=== PATIENT | female | born 1950 | race Caucasian/White ===

== ENCOUNTER 2016-08-23 11:43 | Emergency (ER) | payer BC ==
[2016-08-23 12:06] VITALS: BP 110/67
--- NOTE | 2016-08-23 12:13 | UC ---
Complaint Female HPI - HPI Summary HPI Summary: 65F presents with increase urgency , dysuria,for a day. She denies any fever, flank pain, abdominal pain, n/v/d or hematuria. She has pyridium at home that she has not taken yet. She gest UTI once a year and this feels just like her previous UTI. She is going on a long trip tomorrow PMH of osteopenia. - History Of Current Complaint Chief Complaint: UCGU Stated Complaint: UTI COMPLAINT Time Seen by Provider: 08/23/16 12:11 - Allergies/Home Medications Allergies/Adverse Reactions: Allergies Allergy/AdvReac Type Severity Reaction Status Date / Time Sulfamethoxazole Allergy See Comment Verified 08/23/16 12:02 w/Trimethoprim [From Bactrim] Home Medications: Home Medications Alendronate (NF) [Fosamax (NF)] 1 tab WEEKLY 08/23/16 [History Confirmed ] PMH/Surg Hx/FS Hx/Imm Hx Cardiovascular History Of: Denies: Hypertension Cancer History Of: Denies: Breast Cancer - Surgical History Surgical History: None - Family History Known Family History: Negative: Cardiac Disease - Social History Alcohol Use: Weekly Substance Use Type: None Smoking Status (MU): Never Smoked Tobacco Review of Systems Constitutional: Negative Cardiovascular: Negative Gastrointestinal: Negative Genitourinary: Dysuria, Frequency, Urgency All Other Systems Reviewed And Are Negative: Yes Physical Exam Triage Information Reviewed: Yes Appearance: Well-Appearing Vital Signs: Initial Vital Signs Temp 97.7 F 08/23/16 12:03 Pulse 84 08/23/16 12:03 Resp 18 08/23/16 12:03 BP 110/67 08/23/16 12:03 Pulse Ox 96 08/23/16 12:03 ENT: Positive: Normal ENT inspection, Pharynx normal, TMs normal Respiratory: Positive: Lungs clear, Normal breath sounds Cardiovascular: Positive: RRR Abdomen Description: Positive: Nontender, Soft Bowel Sounds: Positive: Present Complaint Female Dx - Course Course Of Treatment: 65F presents with UTI symptoms for day, has many UTI and symptoms same as previous, normal PE, U/A pos for leuko, will treat with macrodid due to kidney function normal via previous labs, patient agrees with plan - Differential Dx/Diagnosis Differential Diagnosis/HQI/PQRI: Renal Colic, Ureteral Stone, Urinary Tract Infection Provider Diagnoses: urinary tract infection Discharge - Discharge Plan Condition: Good Disposition: HOME Prescriptions: Nitrofurantoin Macrocrystals* [Macrodantin*] 100 mg PO BID #10 cap Patient Education Materials: Nitrofurantoin Macrocrystals (By mouth), Urinary Tract Infection in Women (ED) Referrals: Christopher Zamudio MD [Primary Care Provider] - Additional Instructions: Take Macrobid twice a day for 5 days Return to UC if develop fever, severe abdominal pain, nausea, or vomiting or any new or worsening symptoms
== END 2016-08-23 12:43 | disposition home or self-care (01) ==
LOC: UCEAST 11:43
DX: N39.0 Urinary tract infection, site not specified (principal); Z88.1 Allergy status to other antibiotic agents
CPT/HCPCS: 81002; 87077; 87086; 87186; 99212; G0463

== ENCOUNTER 2019-03-07 07:53 | Day surgery (SDC) | payer BC ==
[~2019-03-07 07:53] MED LIST: Acetaminophen TAB* 325 MG PO PRN; Buffered Lidocaine 1% SYRIN* 1 ML/SYRINGE INTRADERM ONE
[2019-03-07] MEDS ORDERED: Midazolam* 1 MG/ML 5 ML VIAL (5 MG) ONE (08:18)
[2019-03-07] MEDS ORDERED: fentaNYL* 50 MCG/ML 2 ML VIAL (100 MCG VIAL) ONE (08:18)
[2019-03-07 09:47] VITALS: BP 110/62
--- NOTE | 2019-03-07 09:53 | OP ---
DATE OF OPERATION: 03/07/19 [facility] DATE OF : 48 SURGEON: Dr. Sathish Ruby. CONSUMER RELATIONS SPECIALIST: None. ANESTHESIA: Topical with intravenous sedation. PRE-OP DIAGNOSIS: Cataract, right eye. POST-OP DIAGNOSIS: Cataract, right eye. OPERATIVE PROCEDURE: Phacoemulsification and cataract extraction with posterior chamber intraocular lens implant, right eye. COMPLICATIONS: None. BLOOD LOSS: None. DESCRIPTION OF PROCEDURE: The patient was brought to the operating room and received a small amount of intra-venous sedation. A drop of Tetracaine was placed in her right eye. She was prepped and draped in the usual sterile fashion for ophthalmic surgery and attention was directed to the right eye where a speculum was placed. A paracentesis was created at the 11 o'clock position and 0.1 cc of 1 percent preservative-free Lidocaine was injected into the anterior chamber followed by DisCoVisc. The eye was digitally stabilized while a 2.75 mm keratome was used to create a triplanar clear corneal incision at the 9 o'clock position. A continuous curvilinear capsulorrhexis was created with a cystotome and Utrata forceps. BSS on a cannula was used to hydrodissect the lens from the capsule. Phacoemulsification was performed in a divide-and- conquer technique to create four fragments which were removed. Residual cortical material was removed with irrigation and aspiration. DisCoVisc was used to inflate the capsular bag and an AU00T0 18.5 diopter lens was folded and inserted into the capsular bag. DisCoVisc was removed using irrigation and aspiration. BSS on a cannula was used to hydrate the corneal stroma and seal the wound. At the end of the case the pupil was round and the lens was centered. The eye was of normal pressure and the wound was water tight. The speculum was removed and topical Maxitrol ointment was placed on the surface of the eye. The eye was closed, patched and shielded and the patient was sent to the recovery room in stable condition with post operative instructions and follow-up appointment given. [id number]/CPS #: [id number]
[2019-03-07] MEDS ORDERED: Cyclopentolate 1% OPTH.SOL* 2 ML BTL ONE (14:47)
[2019-03-07] MEDS ORDERED: Phenylephrine OPHTH SOL 2.5%* 2 ML ONE (14:47)
[2019-03-07] MEDS ORDERED: Lidocaine 1% MPF ** 5 ML VIAL ONE (14:47)
[2019-03-07] MEDS ORDERED: Neomycin/Polymy/Dex OPHTH.OIN* 3.5 GM ONE (14:47)
[2019-03-07] MEDS ORDERED: Tropicamide 1% OPTH.SOL* BTL ONE (14:47)
[2019-03-07] MEDS ORDERED: Ketorolac 0.5% OPHTH (NF) 0.5 % 5 ML BTL ONE (14:47)
[2019-03-07] MEDS ORDERED: Tetracaine 0.5% OPTH.SOL 4 ML* 1 DROP BTL ONE (14:47)
== END 2019-03-07 09:39 | disposition home or self-care (01) ==
LOC: OREAST 07:53
PROVIDERS: ATTEND Ophthalmology
DX: Z01.818 Encounter for other preprocedural examination (principal); H25.13 Age-related nuclear cataract, bilateral; R30.0 Dysuria; N39.0 Urinary tract infection, site not specified; Z12.11 Encounter for screening for malignant neoplasm of colon
CPT/HCPCS: A9270-GY; J2250; J3010; V2632

== ENCOUNTER 2022-12-31 05:45 | Observation (INO) ==
[~2022-12-31 05:45] MED LIST changes: -Acetaminophen TAB* 325 MG PO PRN; -Buffered Lidocaine 1% SYRIN* 1 ML/SYRINGE INTRADERM ONE; +Tranexamic Acid 1,000 MG/10 ML 1,000 MG in NS 0.9% 50 ML 50 ML IV SCH
[2022-12-31] MEDS ORDERED: Buffered Lidocaine 1% SYRIN 1 ml INTRADERM ONE (06:00)
[2022-12-31] MEDS ORDERED: Lactated Ringers 1000 ml BAG 1,000 ML IV SCH ×2 (06:00→08:00)
[2022-12-31] MEDS ORDERED: ceFAZolin 2 GM in NS PREMIX 2 GM/100 ML BAG IVPB ONE (06:06)
[2022-12-31 06:31] LABS: Rapid COVID-19 Molecular Undetected (Undetected)
[2022-12-31] MEDS ORDERED: Sevoflurane BOTTLE ONE (06:40)
[2022-12-31] MEDS ORDERED: Phenylephrine IV 10 MG/ML 1 ml VIAL ONE (06:41)
[2022-12-31] MEDS ORDERED: Propofol 10 MG/ML 20 ML BTL ONE (06:42)
[2022-12-31] MEDS ORDERED: ROPIVACAINE 5 MG/ML 30 ML BTL (0.5%) ONE ×2 (06:53→07:02)
[2022-12-31] MEDS ORDERED: fentaNYL 100 mcg/2 ml 50 MCG/ML VIAL ONE (07:01)
[2022-12-31] MEDS ORDERED: Midazolam 2 mg/2 ml VIAL 1 mg/ml 2 ml VIAL (2 mg) ONE ×2 (07:02→07:36)
[2022-12-31] MEDS ORDERED: Morphine 2 MG/ML SYRINGE IV PRN (07:48)
[2022-12-31] MEDS ORDERED: Lactulose 30 ml UDC PO PRN (07:48)
[2022-12-31] MEDS ORDERED: Ondansetron 4 mg VIAL 2 MG/ML 2 ml VIAL IV PRN (07:48)
[2022-12-31] MEDS ORDERED: Magnesium Hydroxide LIQ 30 ML UDC PO PRN (07:48)
[2022-12-31] MEDS ORDERED: Ondansetron ODT 4 mg TAB 4 MG TAB PO PRN (07:48)
[2022-12-31] MEDS ORDERED: Naloxone 0.4 mg VIAL 0.4 mg/ml 1 ml VIAL IV PRN (08:26)
[2022-12-31] MEDS ORDERED: HYDROmorphone 1 MG/1 ML SYRINGE IV PRN (08:26)
[2022-12-31] MEDS: Magnesium Hydroxide LIQ 30 ML UDC PO SCH ×2 (15:01→21:02)
[2022-12-31] MEDS: Vitamin THERAPEUTIC TAB PO SCH (15:01)
[2022-12-31] MEDS: ceFAZolin 1 GM ADVAN 1 GM in NS 0.9% 50 ML 50 ML IVPB SCH ×2 (15:31→23:27)
[2023-01-01 06:56] LABS: Hemoglobin 10.8 g/dL (11.5-14.3); Mean Platelet Volume 7.8 fL (7.5-11.2); Platelet Count 207 10^3/uL (150-450)
[2023-01-01 07:17] LABS: Calcium 8.3 mg/dL (8.6-10.3); Creatinine, Serum 0.66 mg/dL (0.51-0.95); Potassium 3.8 mmol/L (3.5-5.0); eGFR CKD-EPI 92.6 (>60)
[2023-01-01] MEDS: Vitamin THERAPEUTIC TAB PO SCH (07:42)
[2023-01-01] MEDS: Magnesium Hydroxide LIQ 30 ML UDC PO SCH (07:49)
[2023-01-01] MEDS: ceFAZolin 1 GM ADVAN 1 GM in NS 0.9% 50 ML 50 ML IVPB SCH (09:35)
[2023-01-01 10:20] VITALS: BP 92/48
== END 2023-01-01 11:20 | disposition home or self-care (01) ==
LOC: AA 05:45 → INTOOBSV 05:45 → SSU 11:15
PROVIDERS: ADMIT Orthopaedic Surgery Adult Reconstructive Orthopaedic Surgery; ATTEND Orthopaedic Surgery Adult Reconstructive Orthopaedic Surgery